=== PATIENT | male | born 1985 | race Caucasian/White ===

== ENCOUNTER → 2016-06-24 | Outpatient (CLI) | payer BC ==
[~2016-06-24] MED LIST: MULTIPLE VITAMI1 T11 PO
--- NOTE | ~2016-06-24 | CR181 ---
[facility] A Service of [facility] RADIOLOGY TEXT RESULTS PATIENT: CHARLES ARRIAGA LOCATION: [facility] : 85 UNIT #: [id number] AGE: [address]: QI LAMB APRN SEX: M ORDER DR: [id number] [address] [address] [id number] O MR#: [id number] Acc #: [id number] NAME: CHARLES ARRIAGA : 1985 SEX: M STUDY DATE/TIME: 06/24/2016 17:59 UNIT: [facility] ROOM: STUDY DESCRIPTION: CR Lumbar Spine 2 or 3 Views Attending Physician: Qi Lamb Aprn Ordering Physician: Qi Lamb Aprn MEDICAL IMAGING REPORT This report is preliminary unless electronic signature is present. EXAM Lumbosacral spine HISTORY SUPPLIED Low back pain for 6 months FINDINGS AP lateral and spot views are obtained. Lumbar alignment is normal. Disc space vertebral body height is maintained. No fractures, lytic or blastic lesions are seen. CONCLUSION Negative lumbosacral spine Dictated by... Nestor Quintana M.D. THIS IS AN ELECTRONICALLY VERIFIED REPORT Nestor Quintana M.D. at 06/28/2016 7:21 AM MARLEY/niecy TD: 06/24/2016 22:28 JOB #: [id number] MEDICAL IMAGING REPORT Page 1 of 1
--- NOTE | ~2016-06-24 | CR58 ---
[facility] A Service of [facility] RADIOLOGY TEXT RESULTS PATIENT: CHARLES ARRIAGA LOCATION: [facility] : 85 UNIT #: [id number] AGE: [address]: QI LAMB APRN SEX: M ORDER DR: [id number] [place] [id number] O MR#: [id number] Acc #: [id number] NAME: CHARLES ARRIAGA : 1985 SEX: M STUDY DATE/TIME: 06/24/2016 17:59 [facility] ROOM: STUDY DESCRIPTION: CR Cervical Spine 2 or 3 Views Attending Physician: Qi Lamb Aprn Ordering Physician: Qi Lamb Aprn MEDICAL IMAGING REPORT This report is preliminary unless electronic signature is present. EXAM Cervical spine 4 views HISTORY Bump on cervical spine pain for 6 months. TECHNIQUE AP, lateral and open mouth and angled odontoid views are submitted. FINDINGS There is reversal of the normal cervical lordosis. Disc space vertebral body height is maintained and no subluxation is seen. No fractures are present. CONCLUSION Reversal of the normal cervical lordosis. Otherwise, negative cervical spine. Dictated by... Nestor Quintana M.D. THIS IS AN ELECTRONICALLY VERIFIED REPORT Nestor Quintana M.D. at 06/28/2016 7:21 AM MARLEY/adalgisa TD: 06/24/2016 22:26 JOB #: [id number] MEDICAL IMAGING REPORT [facility] A Service of [facility] RADIOLOGY TEXT RESULTS PATIENT: CHARLES ARRIAGA LOCATION: [facility] : 85 UNIT #: [id number] AGE: [address]: QI LAMB APRN SEX: M ORDER DR: Page 1 of 1
--- NOTE | ~2016-06-24 | CR242 ---
[facility] A Service of [facility] RADIOLOGY TEXT RESULTS PATIENT: CHARLES ARRIAGA LOCATION: [facility] : 85 UNIT #: [id number] AGE: [address]: QI LAMB APRN SEX: M ORDER DR: [id number] [address] [address] [id number] O MR#: [id number] Acc #: [id number] NAME: CHARLES ARRIAGA : 1985 SEX: M STUDY DATE/TIME: 06/24/2016 17:59 UNIT: [facility] ROOM: STUDY DESCRIPTION: CR Thoracic Spine 2 Views Attending Physician: Qi Lamb Aprn Ordering Physician: Qi Lamb Aprn MEDICAL IMAGING REPORT This report is preliminary unless electronic signature is present. EXAM Thoracic spine total of 3 views HISTORY Back pain for 6 months. No trauma. TECHNIQUE AP, lateral and a swimmer's view submitted. FINDINGS Thoracic alignment is normal. Disc spaces and vertebral body heights are maintained. No fractures or subluxation. CONCLUSION Negative thoracic spine. Dictated by... Nestor Quintana M.D. THIS IS AN ELECTRONICALLY VERIFIED REPORT Nestor Quintana M.D. at 06/28/2016 7:21 AM MARLEY/adalgisa TD: 06/24/2016 22:27 JOB #: [id number] MEDICAL IMAGING REPORT Page 1 of 1
== END | disposition home or self-care (01) ==
LOC: SRAD 17:46
DX: M54.2 Cervicalgia (principal); M54.6 Pain in thoracic spine; M54.5 Low back pain
CPT/HCPCS: 72040; 72070; 72100